=== PATIENT | female | born 1990 | race Caucasian/White ===

== ENCOUNTER 2018-03-31 12:22 | Emergency (ER) | payer OTHER ==
[~2018-03-31] VITALS: Ht 152.4 cm; Wt 79.5 kg
[2018-03-31 12:31] VITALS: BP 134/52
[2018-03-31] MEDS ORDERED: IBUPROFEN 200 MG TABLET ONE (13:00)
[2018-03-31] MEDS ORDERED: IBUPROFEN 600 MG TABLET PO ONE (14:00)
--- NOTE | 2018-03-31 14:00 | NUR ---
Patient/Caregiver given discharge instructions and they have confirmed that they understand the instructions. Patient ambulatory with steady gait.
== END 2018-03-31 14:02 | disposition home or self-care (01) ==
LOC: ED 13:50
DX: G89.11 Acute pain due to trauma (principal); M25.562 Pain in left knee; F17.200 Nicotine dependence, unspecified, uncomplicated; X50.1XXA Overexertion from prolonged static or awkward postures, initial encounter; Y93.89 Activity, other specified; Y92.828 Other wilderness area as the place of occurrence of the external cause; Y99.8 Other external cause status
CPT/HCPCS: 99283